=== PATIENT | female | born 1945 | race Caucasian/White ===

== ENCOUNTER 2023-03-21 13:38 | Emergency (ER) | payer MEDICARE, SELFPAY ==
[2023-03-21 13:39] VITALS: BP 165/77; PULSE 89; RESP 16; TEMP 36.8; O2SAT 98; BMI 20.8
--- NOTE | 2023-03-21 15:38 | CT_ITS ---
EXAMINATION : Head CT w/out contrast HISTORY : trauma COMPARISON : None. TECHNIQUE : Multiple contiguous axial images were obtained from the skull base to the vertex without intravenous contrast. A radiation dose optimization technique was used for this scan. FINDINGS : There is no evidence for acute intracranial hemorrhage, mass effect, or midline shift. There is no extra-axial fluid collection. There are periventricular white matter changes consistent with chronic microvascular ischemic disease. There is sulcal widening and ventricular enlargement consistent with cerebral atrophy. There is normal plascencia-white differentiation, without CT evidence of acute ischemia or infarct. The skull base and calvarium are unremarkable. The orbits are unremarkable. The paranasal sinuses are clear. The mastoid air cells are well-aerated. The soft tissues are unremarkable. CT/Brain/Head without Contrast IMPRESSION: No acute intracranial abnormality. Chronic involutional and ischemic changes of the brain. Electronically Signed: Sarbjit Mccartney MD at 17:10 EDT ,
--- NOTE | 2023-03-21 15:44 | EX.ED.GENINJ ---
HPI History of Present Illness Chief Complaint: Head Injury Informant: patient Narrative Narrative: Patient presents with head injury and laceration. This patient was out pruning some bushes in her garden. She accidentally tripped and fell. Her the right side of her forehead hit the gas valve entering the house. She states she never lost consciousness. She has no nausea and vomiting. She does have some headache in that area. She is on no blood thinners. No numbness tingling weakness or neck pain. Bleeding is controlled. [facility] Medical History Cataract Home Medications meloxicam 7.5 mg tablet 15 mg PO DAILY 03/21/23 [History Last Taken 03/20/23] Allergy/AdvReac Type Severity Reaction Status Date / Time No Known Allergies Allergy Verified 03/21/23 13:41 Social History pets and animals: Yes Smoking Status: Former smoker ROS ROS ED Constitutional Constitutional ED: Denies fever(s) Eyes Eyes: Denies blurry vision or change in vision ENT ENT ED: Denies rhinorrhea or sore throat Cardiovascular Cardiovascular: Denies chest pain or palpitations Respiratory/Chest Respiratory/Chest: Denies cough or dyspnea Gastrointestinal Gastrointestinal: Denies nausea or vomiting Musculoskeletal Musculoskeletal: Denies arthralgias, back pain, myalgias or neck pain Integumentary Reports other Details: See history of present illness Neurologic Neurologic: Reports headache(s); Denies paresthesias or weakness Hematologic/Lymphatic Hematologic/Lymphatic: Denies easy bleeding or easy bruising EXAM Physical Exam Narrative Exam Narrative: Patient awake alert sitting calmly in the room. No acute distress and carries on normal conversation. HEENT does show a 2 cm U-shaped laceration on the right side of her forehead. There is some contusion of the skin in this area. But there does not appear to be any bony step-off that I can noted at this point. No active bleeding. No serous drainage. No other trauma found on her head and no other areas of tenderness. Neck shows no tenderness with palpation or range of motion Lungs are clear bilaterally and saturations are normal at 98% on room air showing no hypoxia. Heart is regular not tachycardic There is no spinal tenderness No tenderness or deformities to extremities or injuries of them. Neurologically she is awake alert appropriate with normal gait and balance also. Const Vital Signs: 03/21/23 13:39 Temperature 98.2 F Temperature Source Temporal Pulse Rate 89 Respiratory Rate 16 Blood Pressure 165/77 H Blood Pressure Mean 106 Pulse Ox 98 Oxygen Delivery Method Room Air MDM MDM MDM Narrative Medical decision making narrative: My independent interpretation of her CT of the head shows no sign of bony or intracranial injury on my review. Final reading is similar. It does note chronic involutional and ischemic changes of the brain. Procedure note: Suture laceration: The area was cleansed and scrubbed. She actually has a 1-1/2 cm U-shaped laceration with a 5 mm laceration separate from and below this. The 5 mm laceration does not need suturing. The larger one does. The area was scrubbed. It was anesthetized with 1.5 cc of 1% lidocaine with epinephrine. Good anesthesia was achieved. It was further irrigated and scrubbed. It was sutured with good cosmesis and hemostasis with 4 interrupted 6-0 Ethilon and patient tolerated this well. We discussed reasons to return as well as timing of suture removal and signs of infection. Radiography Diagnostic Testing: Clinical Impression(s) from Imaging Studies Brain CT 03/21/23 15:38 IMPRESSION: No acute intracranial abnormality. Chronic involutional and ischemic changes of the brain. Electronically Signed: Sarbjit Mccartney MD at 17:10 EDT , Discharge Plan Triage Chief Complaint: Head Injury Other Complaint: Laceration ED Provider: Elias Bynum Dx/Rx/DC Orders Clinical Impression: Sutured skin wound, Fall at home, Closed head injury, Forehead laceration Instructions: ED Laceration: All Closures Prescriptions: No Action meloxicam 7.5 mg tablet 15 mg PO DAILY Primary Care Provider: Chetna Choe Referrals: Chetna Choe MD [Primary Care Provider] - 5 Days for suture removal Disposition Disposition: Home, Self Care
[2023-03-21 18:38] VITALS: RESP 16
[2023-03-21] MEDS: Lidocaine 1% (20 ml mdv) 20 ML Vial INFILT (18:38)
== END 2023-03-21 18:41 | disposition home or self-care (01) ==
PROVIDERS: Emergency Provider Emergency Medicine; PCP Internal Medicine; Visit Provider Emergency Medicine
DX: S01.81XA Laceration without foreign body of other part of head, initial encounter (principal); W18.09XA Striking against other object with subsequent fall, initial encounter; Y93.H2 Activity, gardening and landscaping; Y92.017 Garden or yard in single-family (private) house as the place of occurrence of the external cause; Z87.891 Personal history of nicotine dependence
CPT/HCPCS: 12011; 70450; 99283

== ENCOUNTER 2024-08-18 14:36 | Outpatient (CLI) | payer MEDICARE, SELFPAY ==
--- NOTE | 2024-08-18 14:45 | CT_ITS ---
STUDY: CT CHEST WITHOUT CONTRAST REASON FOR EXAM: Female, 79 years old. HYPERLIPIDEMIA RADIATION DOSAGE (If Supplied By Facility): CTDIvol = ( 12.19 ) mGy, DLP = ( 195.04 ) mGycm TECHNIQUE: Transaxial imaging was performed without the administration of intravenous contrast material. Individualized dose optimization techniques were used for this CT. COMPARISON: No relevant priors. FINDINGS: CHEST The lungs are normal. There is no demonstrated pleural abnormality. There are calcifications of the coronary arteries. There is calcification of the mitral valve annulus. Normal mediastinum. Normal hilar regions. Normal unenhanced pulmonary arteries. There is atherosclerotic calcification of the aortic arch and descending thoracic aorta. Normal osseous structures. There is no demonstrated abnormality of the visualized upper abdomen. CT/Limited Chest CT Cardiac Only IMPRESSION: Normal unenhanced CT chest T abdomen examination. Electronically Signed: Jose Parada MD at 14:52 EST ,
--- NOTE | 2024-08-18 17:21 | CA.SCORE ---
Calcium Scoring Date of Study:: 08/18/24 Indications Indications: Hyperlipidemia Coronary Calcium Scoring: High-resolution Computed Tomographic imaging of the chest was performed on [08/18/2024], with particular attention paid to the coronary arteries. Images from the examination were analyzed for the presence and extent of coronary artery calcification , using coronary calcium quantification software. The patient tolerated the procedure well and there were no complications. The results of the coronary calcification analysis are provided below. Findings Coronary Artery Left Main (LM): 0 Left Anterior Descending (LAD): 61.9 Left Circumflex (LCX): 0 Right Coronary Artery (RCA): 0 Total Agatston Score: 61.9 Percentile Rankinth to 50th percentile Calcium Scoring Interpretation: Different methods to categorize the overall amount of coronary plaque. Overall amount CAC SIS Visual of coronary plaque P1 Mild -100 <2 1-2 vessels with mild amount of plaque P2 Moderate 101-300 3-4 1-2 vessels with moderate amount, 3 vessels with mild amount of plaque P3 Severe 301-999 5-7 3 vessels with moderate amount, 1 vessel with severe amount of plaque P4 Extensive >1000 >8 2-3 vessels with severe amount of plaque Calcium Score: Mild: 1-2 vessels w/mild amount of plaque Conclusion: Mild atherosclerotic plaquing noted in the LAD distribution.
== END 2024-08-18 23:59 | disposition home or self-care (01) ==
PROVIDERS: PCP Internal Medicine; Referring Provider Internal Medicine Interventional Cardiology; Visit Provider Internal Medicine Interventional Cardiology
DX: Z13.6 Encounter for screening for cardiovascular disorders (principal); E78.2 Mixed hyperlipidemia
CPT/HCPCS: 75571; 76380